=== PATIENT | male | born 1960 | race Caucasian/White ===

== ENCOUNTER 2018-06-06 11:40 | Emergency (ER) | payer SELFPAY ==
[~2018-06-06] VITALS: Ht 177.8 cm; Wt 93.0 kg
[2018-06-06] MEDS ORDERED: CEFADROXIL500 M1 PO (13:24)
[2018-06-06] MEDS ORDERED: NORCO 5-325 TA1 EACH PO (13:24)
[2018-06-06] MEDS ORDERED: IBUPROFEN600 MG PO (13:24)
== END 2018-06-06 13:25 | disposition home or self-care (01) ==
LOC: ED 11:40
DX: S62.643A Nondisplaced fracture of proximal phalanx of left middle finger, initial encounter for closed fracture (principal); Z91.040 Latex allergy status; W00.0XXA Fall on same level due to ice and snow, initial encounter; Y93.89 Activity, other specified; Y92.89 Other specified places as the place of occurrence of the external cause; Y99.8 Other external cause status